=== PATIENT | male | born 1980 | race Caucasian/White ===

== ENCOUNTER 2018-09-12 13:49 | Emergency (ER) | payer MEDICAID ==
[~2018-09-12] VITALS: Ht 160 cm; Wt 105.0 kg
[2018-09-12 13:52] VITALS: Ht 160 cm; Wt 105.0 kg
[2018-09-12] MEDS ORDERED: KETOROLAC 30 MG INJ IM STA (15:31)
[2018-09-12] MEDS ORDERED: LIDOCAINE 2% (MDV) 20 ML INJ INJ STA (15:31)
--- NOTE | 2018-09-12 15:36 | ERD ---
ER Documentation Chief Complaint Chief Complaint laceration with glass bleeding control HPI 38-year-old male with no past medical or surgical history who presents after sustaining a laceration to his forehead. 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 He denies LOC, DAWKINS, dizziness or any other injuries related to fall. At time of evaluation patient in no acute distress mentating answering questions appropriately. He has had some moderate bleeding from the wound and has bandages to the forehead. Reports all vaccinations up-to-date. ROS All systems reviewed and are negative except as per history of present illness. Allergies Allergies: Coded Allergies: No Known Allergy (Unverified , 09/12/18) PMhx/Soc Medical and Surgical Hx: pt denies Medical Hx, pt denies Surgical Hx Hx Alcohol Use: No Hx Substance Use: No Smoking Status: Never smoker FmHx Family History: No diabetes, No coronary disease, No other Physical Exam Vitals Vital Signs Date Temp Pulse Resp B/P (MAP) Pulse Ox O2 O2 Flow FiO2 Time Delivery Rate 09/12/18 98.2 75 18 140/63 97 13:52 (88) Physical Exam I have reviewed the triage vital signs. Const: Well nourished, well developed, appears stated age Eyes: PERRL, no conjunctival injection HENT: NCAT, Neck supple without meningismus, forehead with approx 3 1/2 cm laceration, with jagged edge at proximal end, small superficial laceration to bridge of nose CV: RRR, Warm, well-perfused extremities RESP: CTAB, Unlabored respiratory effort GI: soft, non-tender, non-distended, no masses MSK: No gross deformities appreciated Skin: Warm, dry. No rashes Neuro: grossly non focal Psych: Appropriate mood and affect. Results 24 hrs Current Medications Medications Dose Sig/Andrés Start Time Status Last (Trade) Ordered Route PRN Stop Time Admin Dose Reason Admin Lidocaine 20 ml ONCE STAT 09/12/18 DC (Xylocaine INJ 15:31 09/12/18 2% (Mdv) 20 15:33 ml) Ketorolac 30 mg ONCE STAT 09/12/18 DC 09/12/18 Tromethamine IM 15:31 09/12/18 15:37 (Toradol) 15:33 Procedures/MDM 38-year-old male with no past medical history presents with laceration to forehead after sustaining injury. X-ray of facial bones showed small radiopaque foreign body in soft tissue of forehead. Wound copiously irrigated with saline. Laceration repaired without issue utilizing simple sutures. Post procedure x- ray with no foreign body. Laceration Repair by me: Anesthesia: 1% lidocaine locally Location: forehead Tendon/Joint/Nerves: No injury Foreign body: copious irrigation and exploration Technique: Simple Interrupted Sutures Complexity: No subcutaneous sutures/mucosal repair/edge excision Post Closure Length: 7 sutures, approx 3 1/2 cm Patient's bleeding was easily controlled in the department and there is no indication of anemia. No evidence of compartment syndrome, neurologic injury, vascular injury, open joint, tendon laceration, or foreign body. Patient is appropriate for outpatient follow up. 48 hour wound check. Scar minimization instructions given. DISPOSITION PLAN: We discussed follow up with the patient's primary care doctor within 24 to 48 hours. Patient counseled regarding my diagnostic impression and care plan. Prior to discharge all questions answered. Pt agrees with treatment plan and understands strict return precautions. Precautionary instructions provided including instructions to return to the ER if not improving or for any worsening or changing symptoms or concerns. Departure Condition: Stable Patient Instructions: Laceration (Sure+Close) RUSTY BRYAN PA-C Sep 12, 2018 15:36
[2018-09-12 19:41] VITALS: BP 157/93; PULSE 70; RESP 20
== END 2018-09-12 19:44 | disposition home or self-care (01) ==
LOC: FTE 13:49
DX: S01.81XA Laceration without foreign body of other part of head, initial encounter (principal); W25.XXXA Contact with sharp glass, initial encounter; Y92.89 Other specified places as the place of occurrence of the external cause
CPT/HCPCS: 12013; 70140; J1885; Z7610; 96372